=== PATIENT | male | born 1965 | race Two or more races ===

== ENCOUNTER 2020-12-13 11:45 | Inpatient (IN) | payer OTHER ==
[~2020-12-13] VITALS: Ht 182.9 cm; Wt 94.3 kg
[2020-12-13] MEDS ORDERED: TENORMIN25 MG PO (14:45)
[2020-12-13] MEDS ORDERED: PLAVIX75 MG PO (14:45)
[2020-12-13] MEDS ORDERED: FLECAINIDE ACET50 MG PO (14:46)
[2020-12-13] MEDS ORDERED: ATACAND16 MG PO (14:46)
[2020-12-21] MEDS ORDERED: METRONIDAZOLE500 MG (09:25)
[2020-12-21] MEDS ORDERED: OMEPRAZOLE20 MG (09:26)
[2020-12-21] MEDS ORDERED: VITAMIN D21250 MCG (09:26)
== END 2020-12-23 16:45 | disposition home or self-care (01) | DRG 334 ==
LOC: O/R 12-20 08:47 → SURH 12-20 08:47
PROVIDERS: ADMIT Colon & Rectal Surgery; ATTEND Colon & Rectal Surgery
PROC: 4A12X4Z Monitoring of Cardiac Electrical Activity, External Approach (ICD-10-PCS; 2020-12-20)
PROC: 0DTP4ZZ Resection of Rectum, Percutaneous Endoscopic Approach (ICD-10-PCS; principal; 2020-12-20 13:15)
DX: K57.32 Diverticulitis of large intestine without perforation or abscess without bleeding (principal); I10 Essential (primary) hypertension; D64.9 Anemia, unspecified